=== PATIENT | male | born 2005 | race Caucasian/White ===

== ENCOUNTER 2024-01-11 10:01 | Emergency (ER) | payer OTHER, SELFPAY ==
[2024-01-11 10:12] VITALS: BP 137/96
[2024-01-11 10:16] VITALS: BMI 21.8
[2024-01-11] MEDS: TYLENOL 650 MG PO (10:21)
--- NOTE | 2024-01-11 10:36 | ED.GENMED ---
History of Present Illness
General
Chief Complaint: Fever
Source: patient and family (mother at bedside)
Exam Limitations: none
Time Seen by Provider: 01/11/24 10:34
History of Present Illness
History of Present Illness:
18 yo male no significant PMHX noted small bump on left occipital scalp 5 days ago. Concerned for spider bite. Developed fever 4 days ago, with headache, 'soreness' upper body including lower chest area, swollen tender lymph nodes left posterior
neck this a.m. Temp max at home 102.3 last p.m.
Past History
Past History
ED Past Medical History: Asthma
ED Past Surgical History: Tonsilectomy and Other (wisdom teeth)
Social History
Tobacco: Non-smoker
Alcohol: Occasional
Personal: Single
Living: with family
Employment: Employed
Review of Systems
Review of Systems
Allergies reviewed?: Yes
All Other Systems: ROS reviewed and negative except as documented in HPI and ROS
Constitutional: Reports fever and fatigue
EENT: Denies sore throat
Respiratory: Denies trouble breathing
Cardiac: Reports chest pain (mid lower chest, much improved since Tylenol)
ABD/GI: Denies abdominal pain, nausea, vomiting or diarrhea
Phy Exam
Physical Exam
Physical Exam:
GENERAL: No acute distress. A&Ox3.
CONSTITUTIONAL: Afebrile.
HEAD: dry, 3 mm raised, scabbed area left occiput, surrounding skin is normal
EYES: PERRL, conjunctivae normal
Neck: Supple, mildly swollen tender palpable left posterior cervical nodes
ENMT: moist mucus membranes, Pharynx nl
RESPIRATORY: Regular respirations, nonlabored, lungs clear.
CARDIOVASCULAR: Regular rate and rhythm, no murmurs, no rubs.
GI: Soft, nontender, normal BS
MUSCULOSKELETAL: Moves with ease. Well perfused.
SKIN: Warm, dry, pink
PSYCH: Normal mood and affect. Well kept, interactive and appropriate
NEUROLOGIC: Awake, alert and oriented. No focal neurological deficits
Course
Orders/Labs/Results
Orders:
Orders
01/11/24 10:03
EKG [Electrocardiogram (*1)] Urgent
Reason for Study: Chest Pain
EKG- Treatment ONCE
01/11/24 10:18
Acetaminophen [Tylenol] 650 mg .ROUTE .STK-MED ONE
01/11/24 10:20
Acetaminophen [Tylenol] 650 mg PO NOW STA
01/11/24 11:37
Complete Blood Count/With Diff Urgent
Comprehensive Metabolic Panel Urgent
Lactate Level [Lactic Acid] Urgent
Blood Culture Urgent
BLAS Source: Blood/Venous
Specimen Description:
Abnormal Lab Results
01/11/24
11:37
Absolute Lymphs (auto) 1.1 L 10^3/uL
(1.2-3.4)
Lymphocytes % 17.1 L %
(20.5-51.1)
Glucose 128 H mg/dl
(70-99)
01/11/24 11:37
01/11/24 11:37
Vital Signs
Initial and Last Documented VS:
Initial Vital Signs
Temp Pulse Resp BP Pulse Ox
102.8 F H 97 18 137/96 99
01/11/24 10:12 01/11/24 10:12 01/11/24 10:12 01/11/24 10:12 01/11/24 10:12
Last Documented Vital Signs
Temp Pulse Resp BP Pulse Ox
98.5 F 87 14 122/76 98
01/11/24 13:13 01/11/24 13:13 01/11/24 13:13 01/11/24 13:13 01/11/24 13:13
MDM/Problems Addressed
MDM/Problems Addressed:
18 yo male no significant PMHX noted small bump on left occipital scalp 5 days ago. Concerned for spider bite. Developed fever 4 days ago, with headache, 'soreness' upper body including lower chest area, swollen tender lymph nodes left posterior
neck this a.m. Temp max 102.3 last p.m.
Totally non toxic appearing.
Small dry 3 mm scab on left occiput, normal surrounding skin.
EKG NSR
12:45PM:
CBC normal
CMP: Normal
Lab work is normal, patient is febrile and has had bodyaches and does have posterior cervical lymphadenopathy, I offered doxycycline to treat for infectious process
Mom asks if his body would just normally fight it off and can they hold off on the antibiotic
This is reasonable as he is a young, healthy young man, they understand reasons to start the antibiotic and return instructions.
Rx for Doxycycline given to mom.
*Critical Care Note
Total Time (30-74mins, 75-104mins- exclusive of procedures): Not Applicable
ED Attending Note
-
Portions of this chart may have been created with voice recognition software.� Occasional wrong word or��sound alike� substitutions may have occurred due to the inherent limitations of voice recognition software.
Discharge Plan
Departure
Patient Disposition: Home (Routine Discharge)
Date of Disposition: 01/11/24
Time of Disposition: 13:09
Patient with high blood pressure during this ER visit?: No
Condition: Good
Discharge Problem:
LAD (lymphadenopathy), posterior cervical, Fever, Insect bite of scalp
Instructions: Lymphadenitis (DC), Fever, Adult ED, Insect Bites and Stings ED
Prescriptions:
New
doxycycline hyclate 100 mg tablet
100 mg PO BID Qty: 20 0RF
Referrals:
Janie Macario, DO [Family Provider] - Follow up in 2-3 days
Activity Restrictions/Additional Instructions:
As we discussed, your blood work shows no sign of significant infection.
You do, however, have signs of infection of general malaise, body aches, fever and swollen lymph nodes.
As you requested, you may hold off on the antibiotic Doxycycline and continue to manage the fever, drink plenty of water/fluids and your body will most likely recover.
If however, your fever persists or you feel sicker in any way or you are not a LOT better within the next 3 days, you may start the antibiotic and contact your doctor.
Return here immediately for stiff neck, vomiting, fever unrelieved with Ibuprofen or Tylenol, worsening headache or feeling sicker in any way.
Your blood cultures will be back in2-3 days, if they are positive, we will contact you
Interventions
Interventions:
*Risk Screen - Suicide Last Done: 01/11/24 11:23
*General Assessment Last Done: 01/11/24 11:23
*Neglect/Abuse Screening Last Done: 01/11/24 11:23
ED- Fall Risk Assessment Last Done: 01/11/24 13:26
*ED COVID-19 Vaccine History Last Done: 01/11/24 10:12
*Nursing Disposition Last Done: 01/11/24 13:26
ED- Neurological Assessment Last Done: 01/11/24 11:23
ED-Skin Assessment Last Done: 01/11/24 11:23
Discharge Date and Time
Discharge Date/Time: 01/11/24 13:27
Print Language: UPPER SORBIAN
[2024-01-11 11:27] VITALS: BP 130/77
[2024-01-11 12:01] LABS: % Basophils 0.3 % (0-2); % Immature Granulocytes 0.2 % (0-0.5); % Lymphocytes 17.1 % (20.5-51.1); % Monocytes 7.9 % (1.7-9.3); % Neutrophils 74.5 % (42.2-75.2); Absolute Lymphocytes 1.1 10^3/uL (1.2-3.4); Absolute Monocytes 0.5 10^3/uL (0.1-0.6); Absolute Neutrophils 4.9 10^3/uL (1.4-6.5); Hematocrit 45.7 % (39.0-52.0); Hemoglobin 15.7 g/dL (13.0-18.0); Mean Corp Hgb Conc. 34.4 g/dL (33.0-37.0); Mean Corpuscular Hgb 30.4 pg (27.0-31.0); Mean Corpuscular Volume 88.6 fL (80.0-94.0); Mean Platelet Volume 9.2 fL (7.4-10.4); Nucleated Red Blood Cells % 0 % (-); Platelet Count 210 10^3/uL (130-400); Red Blood Cell Count 5.16 10^6/uL (4.70-6.10); Red Cell Dist. Width 12.9 % (11.5-14.5); White Blood Cell Count 6.6 10^3/uL (4.8-10.8)
[2024-01-11 12:18] LABS: ALT (SGPT) 20 U/L (0-50); AST (SGOT) 28 U/L (17-59); Albumin 4.8 g/dl (3.5-5.0); Alkaline Phosphatase 77 U/L (38-126); Blood Urea Nitrogen 14 mg/dl (9-20); Calcium 9.9 mg/dl (8.4-10.2); Carbon Dioxide 28 mmol/L (22-30); Chloride 99 mmol/L (98-107); Estimated Creatinine Clearance 107 ml/min; Glucose 128 mg/dl (70-99); Potassium 4.5 mmol/L (3.5-5.1); Sodium 135 mmol/L (135-145); Total Bilirubin 1.3 mg/dl (0.2-1.3); Total Protein 7.5 g/dl (6.3-8.2); eGFR > 60.00
[2024-01-11 13:13] VITALS: BP 122/76
== END 2024-01-11 13:27 | disposition home or self-care (01) ==
LOC: EMR 10:01
PROVIDERS: Registered Nurse; EMERGENCY PHYSICIAN Emergency Medicine; FAMILY PHYSICIAN Family Medicine
DX: R59.1 Generalized enlarged lymph nodes (principal); S00.06XA Insect bite (nonvenomous) of scalp, initial encounter; W57.XXXA Bitten or stung by nonvenomous insect and other nonvenomous arthropods, initial encounter; R50.9 Fever, unspecified; J45.909 Unspecified asthma, uncomplicated
CPT/HCPCS: 99283; 80053; 83605; 85025; 87040; 93005